=== PATIENT | male | born 1955 | race Caucasian/White ===

== ENCOUNTER 2020-05-03 20:21 | Inpatient (IN) | payer SELFPAY ==
[2020-05-03 20:23] VITALS: BP 186/114; PULSE 65; RESP 24; TEMP 36.6; O2SAT 96; BMI 22.2
--- NOTE | 2020-05-03 20:28 | ED_ITS ---
HPI - General Adult General: Chief complaint: Chest Pain Stated complaint: CP Time Seen by Provider: 05/03/20 20:23 Source: patient and EMS Mode of arrival: EMS Limitations: no limitations History of Present Illness: HPI narrative: Mr. Byrd is a 64-year-old male who is a direct admit from [facility]. Patient was diagnosed with a non- STEMI and was to be admitted directly. He comes to the ER to have COVID virus screening. Patient denies sore throat, cough, fever denies any or exposures or other risk factors for COVID virus. For his cardiac issues please see the chart that was sent by [facility]. Patient denies any chest pain currently. Associated symptoms: Reports chest pain; Deny dyspnea, headache(s), nausea, rash, palpitations, syncope or vomiting Review of Systems Const: Denies: fever(s) Eyes: Denies: change in vision ENMT: Denies: throat pain Card: Reports: chest pain; Denies: palpitations, syncope, pre-syncope or dyspnea on exertion Resp: Denies: dyspnea, productive cough or non-productive cough GI: Denies: abdominal pain, nausea, vomiting or diarrhea : Denies: flank pain, dysuria, urinary frequency or urinary urgency Musc: Denies: neck pain, back pain or extremity pain Skin/Breast: Denies: rash or pruritus Neuro: Denies: headache(s), numbness in extremities, weakness in extremities or dizziness Bernardo/Lymph: Denies: easy bruising or easy bleeding All/Imm: Denies: urticaria PFSH ED PFSH: Medical History Active intravenous drug use COPD (chronic obstructive pulmonary disease) HCV (hepatitis C virus) HLD (hyperlipidemia) HTN (hypertension) Methamphetamine addiction Peripheral arterial disease Smoking addiction Surgical History History of permanent cardiac pacemaker placement Hx of cataract surgery Pacemaker generator end of life With history of generator exchange Family History Other Heart disease Social History Smoking and tobacco status: current every day smoker cigarettes Number of cigarettes per day: 1-5 [ Other cigarette details: States has been cutting down ] Alcohol intake: former Former alcohol use details: Denies drinking alcohol currently Substance/Drug Use: current Substance/Drug use frequency: daily Substance/Drug use type: Methamphetamine Other substance/drug use details: Injection Desire information about substance/drug rehabilitation?: Yes Counseling given: Yes Lives independently: Yes Household members: none Marital status: Current occupational status: retired and disabled Physical Exam Const: COMMON NORMALS: no acute distress, patient oriented x3, no limitations, healthy appearing and well nourished GENERAL APPEARANCE: cooperative, well kempt and well developed HENMT: COMMON NORMALS: normocephalic, atraumatic, external ears normal, EAC's normal and Normal external nose present HEAD & SCALP: normal to inspection, normocephalic and atraumatic FACE & SINUS: normal facial exam and face symmetric NOSE: Normal external nose present and Normal nares present EXTERNAL EAR: Yes external ears normal EXTERNAL AUDITORY CANAL: EAC's normal MOUTH: Normal oral and palatal mucosa present, lip normal and tongue normal Eye: COMMON NORMALS: Equal, round and reactive pupils present and conjunctivae normal GENERAL EYE: appearance normal, both eyes and all related structures ALIGNMENT: Yes alignment normal PERIORBITAL: periorbital findings normal EYELID: eyelids normal CONJUNCTIVA: Yes conjunctivae normal SCLERA: sclerae normal PUPIL: Yes Equal, round and reactive pupils present Neck/C-Spine: COMMON NORMALS: full ROM, no lymphadenopathy, supple, no meningeal signs and no JVD GENERAL: Yes normal visual inspection and Yes trachea midline Chest: COMMONS NORMALS: normal inspection of the chest and normal palpation of entire chest wall Resp: COMMON NORMALS: normal respiratory effort, No retractions and No use of accessory muscles EFFORT & INSPECTION: Yes able to speak in complete sentences and Yes symmetric chest movement AUSCULTATION: no crackles, no rales, no rhonchi and no wheezes Cardio: COMMON NORMALS: no JVD, regular rate, regular rhythm, S1 normal heart sound present and S2 normal heart sound present RATE: regular rate RHYTHM: regular rhythm HEART SOUNDS: S1 normal heart sound present, S2 normal heart sound present, no click, no gallops, no murmurs, no rubs and abnormal split S2 GI: COMMON NORMALS: Soft to palpation and No hepatosplenomegaly present PALPATION: Yes Soft to palpation, No Tenderness to palpation present (GI), No Guarding due to palpation present (GI), No Rigid due to palpation, Yes No hepatosplenomegaly present, No Hernia present, No Palpable mass present and No Pulsatile mass present : COMMON NORMALS: Yes no CVA tenderness BLADDER/KIDNEY EXAM: Yes no CVA tenderness Back/Pelvis: COMMON NORMALS: no CVA tenderness, thoracic and lumbar spine normal to inspection, no thoracic nor lumbar tenderness and thoraco-lumbar ROM normal Extremity: COMMON NORMALS: normal to inspection, full ROM, capillary refill normal, no joint enlargement, no clubbing, cyanosis or edema and no calf tenderness Neuro: COMMON NORMALS: patient oriented x3, CN's II-XII intact bilaterally, moves all extremities, no focal motor deficits and no sensory deficits noted MENINGEAL SIGNS: Yes no meningeal signs SPEECH: speech normal Psych: COMMON NORMALS: mental status grossly normal, Normal thought process present, cooperative, normal affect, speech normal and activity/motor behavior normal APPEARANCE: Yes well kempt SPEECH: Yes normal speech THOUGHT PROCESS: Normal thought process present Skin: COMMON NORMALS: no rashes or lesions noted, turgor normal, no jaundice, no petechiae and no mottling GENERAL SKIN EXAM: no rashes or lesions noted and turgor normal Course Vital Signs: Vital signs: Vital Signs Temperature 98 F 05/04/20 00:00 Pulse Rate 60 05/04/20 00:00 Respiratory Rate 14 05/04/20 00:00 Blood Pressure 196/108 05/04/20 00:00 Pulse Oximetry 94 05/04/20 00:00 MDM - General Adult MDM Narrative: Medical decision making narrative: Patient has no sign of COVID virus and his EKG is stable with him not having any active chest pain. I reviewed the case with Dr. Bustos and he agrees to admit. EKG Data^: EKG 1: Attestation: I personally reviewed and interpreted this EKG as follows: EKG interpretation date: 05/03/20 EKG interpretation time: 20:35 Interpretation: Normal sinus rhythm at 64 beats a minute, T wave inversions in 3, aVF with occasional paced beats. Discharge Plan Discharge Patient Disposition: Admitted As Inpatient Admit Provider: Chidi Bustos Clinical Impression: Non-ST elevation PA (NSTEMI) Condition: Stable Discharge Date/Time: 05/03/20 22:15 Coding Level of Care Code ED Fish Processor for Chg Fwd Exam Comprehensive
--- NOTE | 2020-05-03 20:43 | ECG_ITS ---
[facility] Test Date: 2020-05-03 Pat Name: Elías Byrd Department: Room: 107 Gender: Male Manager Quality Systems: : 1955 Requested By: Estefani Diaz Order Number: [id number] Chacho MD: Uri Cortez M.D. Measurements Intervals [place] Rate: 64 P: 192 [place]: 217 QRS: 54 QRSD: 102 T: -57 QT: 444 QTc: 459 Interpretive Statements ELECTRONIC ATRIAL PACEMAKER ELECTRONIC VENTRICULAR PACEMAKER -- CONTOUR ANALYSIS BASED ON INTRINSIC RHYTHM POSSIBLE RIGHT VENTRICULAR CONDUCTION DELAY [RSR (QR) IN V1/V2] SEPTAL MYOCARDIAL INFARCTION , PROBABLY OLD [40+ ms Q WAVE IN V1/V2] MODERATE T-WAVE ABNORMALITY, CONSIDER INFERIOR ISCHEMIA [-0.1+ mV T WAVE IN II/aVF] No previous ECG available for comparison Electronically Signed On 05-05-2020 0:04:48 CDT by Uri Cortez M.D. [email or web address]
[2020-05-03 20:44] VITALS: BP 173/112; PULSE 64; RESP 18; O2SAT 97
--- NOTE | 2020-05-03 21:12 | PC.NURSE ---
attempted to call report and they could not take it at this time they will call back.
--- NOTE | 2020-05-03 21:18 | PM.HP ---
Providers/Chief Complaint Admitting Physician: Chidi Bustos Chief Complaint: CP History of Present Illness Elías Byrd is a 64 year old pleasant gentleman daily IV methamphetamine user with shared needles, HCV, cardiac problems including prior PPM implantation, COPD not on oxygen, with chronic cough, HTN, HLD, smoking addiction although says has almost quit, down to 2-3 cigarettes per day. He is hard of hearing, but is able to hear when spoken to closely in loud voice. Was transferred here from [facility] where he presented with episode of chest discomfort/chest pressure starting around 11 AM, and gradually resolving by the time he was at the outlying hospital. He reports it was across his chest, not radiating to his arm, without any definitive trigger. Not worse with movement or breathing. He does have chronic cough which he says he has had for years due to smoking and COPD. Denies any worsening or cough or worsening production of sputum. Denies any hemoptysis. He is currently chest pain-free. At [facility] he received aspirin, nitroglycerin, and a dose of Lovenox for non-STEMI after noted to have troponin elevation up to 208 initial, subsequently decreased down to 175. Chest x-ray there unremarkable. EKG without ST elevation, with some T wave inversions noted. He reports prior history of MN, previously with an angiogram, but denies ever having stents placed. Reports that during prior work-up he checked himself out of the hospital after he started feeling better. At home he denies having any fevers or chills, no headache, no symptoms of upper or lower respiratory infection beyond his chronic manifestations. He is noted with multiple scabbed lesions from injection sites on his arms. He states that he injects methamphetamine several times a day by reusing his own needles, and also sharing needles. He is interested in receiving information about resources to help him quit. He understands the risk of continued use, including cardiovascular risk with MN, as well as risks of bloodstream infection. Review of Systems Const: Denies: fever(s), chills, body aches or malaise Eyes: Denies: change in vision or eye redness ENMT: Denies: throat pain, oral sores or ear or mastoid pain Card: Reports: other (Chest discomfort/chest pressure); Denies: edema, pre-syncope, dyspnea on exertion or orthopnea (But says that he sleeps upright in a chair due to back problems) Resp: Reports: productive cough (Chronic); Denies: dyspnea, change in phlegm color or hemoptysis GI: Denies: abdominal pain, nausea, vomiting, diarrhea, constipation, hematochezia or melena : Denies: flank pain, difficulty urinating, urinary frequency or hematuria Musc: Reports: back pain (Chronic); Denies: joint swelling or joint redness Skin/Breast: Reports: sores (On bilateral upper extremities from multiple needle injections, as well as from picking on his skin); Denies: rash or new lesions Neuro: Denies: headache(s), numbness in extremities, weakness in extremities, dizziness, confusion or seizure-like activity Endo: Denies: polyuria or polydipsia Bernardo/Lymph: Denies: easy bleeding or purpura All/Imm: Denies: urticaria, throat swelling or tongue swelling Medications/Allergies Home Medications Medication Instructions Recorded Confirmed Last Taken Type No Known Home Medications 05/03/20 05/03/20 Unknown History Allergies Allergy/AdvReac Type Severity Reaction Status Date / Time No Known Allergies Allergy Verified 05/03/20 21:30 PFSH Acute PFSH: Medical History Active intravenous drug use COPD (chronic obstructive pulmonary disease) HCV (hepatitis C virus) HLD (hyperlipidemia) HTN (hypertension) Methamphetamine addiction Smoking addiction Surgical History History of permanent cardiac pacemaker placement Hx of cataract surgery Pacemaker generator end of life With history of generator exchange Family History Other Heart disease Social History Smoking and tobacco status: current every day smoker cigarettes Number of cigarettes per day: 1-5 [ Other cigarette details: States has been cutting down ] Alcohol intake: former Former alcohol use details: Denies drinking alcohol currently Substance/Drug Use: current Substance/Drug use frequency: daily Substance/Drug use type: Methamphetamine Other substance/drug use details: Injection Desire information about substance/drug rehabilitation?: Yes Counseling given: Yes Lives independently: Yes Household members: none Marital status: Current occupational status: retired and disabled Vitals/I&O/Wt Last Vital Signs Temp 97.8 F 05/03/20 20:23 Pulse 64 05/03/20 20:44 Resp 18 05/03/20 20:44 BP 173/112 05/03/20 20:44 Pulse Ox 97 05/03/20 20:44 Weight last 48 hrs Weight 70.307 kg Physical Exam Const: COMMON NORMALS: no acute distress and patient oriented x3 GENERAL APPEARANCE: cooperative and comfortable ORIENTATION/CONSCIOUSNESS: Yes awake OTHER: Hard of hearing HENMT: COMMON NORMALS: normocephalic and atraumatic Neck/C-Spine: COMMON NORMALS: no JVD Resp: COMMON NORMALS: normal respiratory effort and clear to auscultation bilaterally AUSCULTATION: clear to auscultation bilaterally Cardio: COMMON NORMALS: no JVD, regular rhythm, S1 normal heart sound present, S2 normal heart sound present and No murmurs present (Cardio) RHYTHM: regular rhythm HEART SOUNDS: S1 normal heart sound present and S2 normal heart sound present GI: COMMON NORMALS: Normal to inspection, nondistended, normoactive bowel sounds present, Soft to palpation and non-tender PALPATION: Yes Soft to palpation Extremity: COMMON NORMALS: no joint enlargement and no pedal edema Neuro: COMMON NORMALS: patient oriented x3 and moves all extremities Skin: COMMON NORMALS: no rashes or lesions noted LESIONS: lesion noted (Multiple prior injection sites on both arms, with few scabbed over lesions, excoriations.) A&P Assessment and plan (1) NSTEMI (non-ST elevated myocardial infarction): Triple on up to 208 initial at [facility], subsequently 175. Chest pain last from 11 AM up until [place] [facility] which is to be time late afternoon until around 1730. He is currently chest pain-free. With daily injection and off methamphetamine, current smoker although has been trying to cut down. Reports history of cardiac disease in the past, and says has had MN in the past and was evaluated several years ago, although at that time checked himself out of the hospital once he was feeling better. Extensively elevation is not clear, he thinks he may have had an angiogram done, although denies having any stents placed. T wave inversions noted on EKG. At this time will monitor his troponin EKG series. Continue aspirin 325 mg. Continue Lovenox. Check FLP, A1c. Given active drug abuse for now we will hold off on beta-rodolfo. Assess TTE. Dr. Cortez will see him in the morning. We will see if records can be requested from his prior evaluation. He needs to stop smoking as well needs to stop methamphetamine use. Discussed with him regarding risks of ongoing use, and he is aware, and states is interested in risk for more formation regarding resources available to help him quit. Will request assistance by case management. Status: Acute (2) Elevated d-dimer: Noted d-dimer elevation over at [facility]. Given his neck drug use likelihood is high this may be secondary to the intravenous injury, however, cannot rule out that his chest pain is not related to PE. His chronic cough, although says is not worse than usual and is due to his COPD. At this time he is on anticoagulation due to non-STEMI. Given he will require additional assessment for this, for now we will old off on additional assessment for possible PE until non-STEMI is evaluated and treated in case he needs either contrast load dye, or nuclear stress testing, for now will avoid CT angiography or V/Q. Either test may be considered depending on chosen cardiac risk stratification modality. Discussed with him regarding elevation of d-dimer and he understands and is agreeable for additional testing for possible VTE when this is safe. Status: Acute (3) Active intravenous drug use: Injecting methamphetamine several times a day. Reports history of untreated C. Chest x-ray over read [facility] without any signs of optic emboli. He is not having any shortness of breath. No cough not worse than well. Injection drug use in the setting of present pacemaker device. We will request blood cultures to be drawn. TTE will be assessed as above for NSTEMI, although at this time no suspicion of infective endocarditis. Please continue to recreational counselor on cessation, provide resources. Status: Acute (4) History of permanent cardiac pacemaker placement: With generator exchange Status: Acute (5) Smoking addiction: Discuss smoking cessation for 3-1/2 minutes. He is trying to quit, and is down to only about 3 cigarettes/day. Encouraged him to continue trying to quit. We will provide as needed nicotine replacement. Status: Acute (6) HLD (hyperlipidemia): Check lipid profile. Status: Acute (7) HTN (hypertension): Monitor blood pressure. So far has been rather elevated. Status: Acute (8) COPD (chronic obstructive pulmonary disease): Not in exacerbation. Neb treatments as needed. Reconcile home medications. Status: Acute (9) Methamphetamine addiction: Appreciate case management assistance with providing resources to help him quit. Status: Acute (10) HCV (hepatitis C virus): Will benefit from additional assessment and treatment on outpatient basis. Status: Acute (11) Hard of hearing: Would benefit from additional assessment by audiology on nonurgent basis. Status: Acute Attestations Medical Necessity Statement*: Admission of over 2 midnights is going to be needed for assessment of management of non-STEMI. Coding Level of Care Code Acute Awning Maker And Installer for g Fwd Exam Comprehensive Diagnoses NSTEMI (non-ST elevated myocardial infarction) I21.4 Elevated d-dimer R79.89 Active intravenous drug use F19.90 History of permanent cardiac pacemaker placement Z95.0 Smoking addiction F17.200 HLD (hyperlipidemia) E78.5 HTN (hypertension) I10 COPD (chronic obstructive pulmonary disease) J44.9 Methamphetamine addiction F15.20 HCV (hepatitis C virus) B19.20 Hard of hearing H91.90
[2020-05-03 21:50] VITALS: BP 160/118; PULSE 60; RESP 18; O2SAT 96
[2020-05-03 21:54] LABS: Troponin(5th) Baseline 195 ng/L (0-15)
[2020-05-03 22:00] VITALS: BP 185/107; PULSE 61; RESP 15; TEMP 36.8; O2SAT 97
[2020-05-03 22:13] VITALS: BP 151/110; PULSE 60; RESP 18; O2SAT 96
[2020-05-03 22:19] VITALS: BP 185/107; PULSE 61; RESP 14; TEMP 36.7; O2SAT 96
--- NOTE | 2020-05-03 22:43 | ECG_ITS ---
[facility] Test Date: 2020-05-03 Pat Name: Elías Byrd Department: Room: 107 Gender: Male Grocery Specialist: : 1955 Requested By: Estefani Diaz Order Number: [id number] Chacho MD: Uri Cortez M.D. Measurements Intervals [place] Rate: -1 P: [place]: -1 QRS: 0 QRSD: -1 T: 0 QT: -1 QTc: Interpretive Statements Demand AV paced rhythm. Diffuse ST-T changes. Poor our progression. WARNING: DATA QUALITY MAY AFFECT INTERPRETATION INTERPRETATION BASED ON A DEFAULT AGE OF 40 YEARS Compared to ECG 05/03/2020 20:35:26 Atrial-paced complex(es) or rhythm no longer present Ventricular-paced complex(es) or rhythm no longer present Myocardial infarct finding no longer present T-wave abnormality no longer present Possible ischemia no longer present Electronically Signed On 05-05-2020 1:33:05 CDT by Uri Cortez M.D. [id number]
--- NOTE | 2020-05-03 22:56 | PC.NURSE ---
Patient admitted to room 107. Patient is alert and oriented. Patient denies any chest pain at this time. Patient oriented to his room and call light within reach. Patient bed in low position, side rail up x2. vitals obtained and telemetry in place.
--- NOTE | 2020-05-03 23:08 | PC.NURSE ---
Patient does have scabbing to both arms. Not open or having any drainage. Doctor is aware.
--- NOTE | 2020-05-03 23:11 | P.CONIM_ITS ---
Providers/Reason For Consult Consulting Physican/Specialty*: Joshua Cortez MD/cardiology Reason for Consult*: Patient with chest pain and elevated troponin Attending Physician: Chidi Bustos History of Present Illness History of Present Illness Elías Byrd is a 64 year old male, with active drug abuse, presented to the [facility] in [place] today with complaints of chest pain. He was found to have elevated troponin T and the abnormal EKG. He was transferred to our hospital through the emergency room for further evaluation management. This patient is an extremely poor historian. He is an active IV drug abuser. He also is hard of hearing. According the patient, he has been having some episodes of chest tightnes s/heaviness for the last few days. This morning, he had a prolonged episode of chest tightness/heaviness of moderate intensity. The symptom might have lasted for an hour or so. The pain was radiating across the chest. He mainly had some shortness of breath. No other associated symptoms or radiation of pain. He was found to have elevated troponin T of around 170 at the outside hospital. It w ent up to 200 in our facility. Currently it seems to be coming down to 180. Patient denies any chest pain. He injects methamphetamine several times a day. He shares needles. He has a history of hepatitis C. HIV status is not known. He is known to have high blood pressure and? Dyslipidemia. He used to see a speech correction consultant in [place]. According to him, he has not been to the speech correction consultant for more than a year. He has a history of myocardial infarction in the past. He had an angiogram but did not have any PCI. Details are not available. His mother had coronary artery disease, myocardial infarction or congestive heart failure. She in her 80s. His brother had a CVA. No other relevant family history. He has been abusing methamphetamine for the last many years. He also smokes cigarettes half a pack a day or so. Denies any alcohol abuse. No other substance abuse. Review of Systems Narrative: CONSTITUTIONAL: No fever or chills. EYES: No blurring of vision or other visual disturbances lately. ENT: Hearing impairment bilaterally. CARDIOVASCULAR: As mentioned above. RESPIRATORY: History of chronic cough GASTROINTESTINAL: No hematemesis or melena. GENITOURINARY: No dysuria or hematuria. INTEGUMENTARY: No skin rashes or history of skin cancer. NEURO: No transient ischemic attacks or amaurosis. PSYCHIATRIC: No history of psychosis or major depression. HEMATOLOGIC: No bleeding disorders or significant anemia. ENDOCRINE: No history of polyuria or polydipsia. MUSCULOSKELETAL: He has been having swelling of both lower extremities. He also is complaining of leg pain bilaterally, with walking. ALLERGY/IMMUNOLOGY: As mentioned above. Meds/Allergies Home Medications and Allergies Home Medications Medication Instructions Recorded Confirmed Last Taken Type No Known Home Medications 05/03/20 05/03/20 Unknown History Allergies Allergy/AdvReac Type Severity Reaction Status Date / Time No Known Allergies Allergy Verified 05/03/20 21:30 PFSH Acute PFSH: Medical History Active intravenous drug use COPD (chronic obstructive pulmonary disease) HCV (hepatitis C virus) HLD (hyperlipidemia) HTN (hypertension) Methamphetamine addiction Peripheral arterial disease Smoking addiction Surgical History History of permanent cardiac pacemaker placement Hx of cataract surgery Pacemaker generator end of life With history of generator exchange Family History Other Heart disease Social History Smoking and tobacco status: current every day smoker cigarettes Number of cigarettes per day: 1-5 [ Other cigarette details: States has been cutting down ] Alcohol intake: former Former alcohol use details: Denies drinking alcohol currently Substance/Drug Use: current Substance/Drug use frequency: daily Substance/Drug use type: Methamphetamine Other substance/drug use details: Injection Desire information about substance/drug rehabilitation?: Yes Counseling given: Yes Lives independently: Yes Household members: none Marital status: Current occupational status: retired and disabled Vitals/I&O/Wt Last Vital Signs Temp 98.1 F 05/03/20 22:19 Pulse 61 05/03/20 22:19 Resp 14 05/03/20 22:19 BP 185/107 05/03/20 22:19 Pulse Ox 96 05/03/20 22:19 Weight last 48 hrs Weight 155 lb Physical Exam Narrative: EXAM NARRATIVE: GENERAL: The patient is alert and oriented times three. Not in any acute distress. Very hard of hearing. HEENT: No significant pallor, icterus or lymphadenopathy. The pupils are relatively small but reactant to light. Oral cavity: There are no mucous membrane lesions. Funduscopic examination: The fundus is not visualized NECK: Trachea appears to be central. No masses noted. No JVD or thyromegaly appreciated. No carotid bruit. RESPIRATORY: Chest is symmetrical. No intercostals muscle retraction or any accessory muscle activation. There is no chest wall tenderness. Breath sounds are heard bilaterally. No rales or rhonchi heard. No evidence of any consoli dation. BREASTS: Deferred. HEART: The PMI is in the 5th left intercostals space just inside the midclavicular line. No palpable precordial events. S1 and S2 are normal. No S3 or S4 heard. No pericardial rub or any click heard. Short systolic murmur in the left sternal border. ABDOMEN: No vessel pulsations or distention. No tenderness. No organomegaly appreciated. No abdominal bruit. Bowel sounds are normally heard. : Deferred. RECTAL: Deferred. LYMPHATIC: No lymphadenopathy noted in the neck or groin. EXTREMITIES: The lower extremities have a mottled appearance. The feet are relatively cold. The dorsalis pedis and posterior tibial pulse are extremely weak on the right side. They are palpable on the left side. MUSCULOSKELETAL: No acute joint deformities or swelling SKIN: There are no significant scars or skin rash noted. NEUROPSYCHIATRIC: The patient is alert and oriented x3. Appears to be somewhat withdrawn . Comprehension seems to be appropriate. Hard of hearing. No focal motor deficits. Data Labs: Other Labs: Laboratory Last Values Troponin T Baselin e 195 ng/L (0-15) H* 05/03/20 21:15 Laboratory Results - last 24 hr 05/03/20 21:15 Troponin T Baselin e 195 H* Micro: Micro: Microbiology 05/03/20 21:34 Blood Culture - Pr eliminary Blood SPECIMEN [facility] 05/03/20 21:15 Blood Culture - Pr eliminary Blood SPECIMEN [facility] Laboratory Last Values Troponin T Baselin e 195 ng/L (0-15) H* 05/03/20 21:15 Troponin T 120 Min jamul 176.7 ng/L (0-15) H 05/03/20 23:01 Delta Troponin T -18.3 ABS# (0-10) L 05/03/20 23:01 EKG^: EKG 1: My Interpretation: The EKG showed sinus rhythm with a demand AV pacing. T inversions in the inferior leads. Poor R wave progression. QT prolongation with a QTC of 470 A&P Assessment and plan (1) NSTEMI (non-ST elevated myocardial infarction): The patient's clinical presentation, abnormal EKG and elevated troponin T are suggestive of a non-ST elevation myocardial infarction. The methamphetamine abuse could be a contributing factor. Currently he is symptom-free and hemodynamically stable. May be kept on the Lovenox and aspirin. We will go ahead and do an echocardiogram in the morning. If he has significant wall motion abnormalities, we may start him on Plavix. Because of the history of methamphetamine abuse, we may hold off on any beta-rodolfo Status: Acute (2) Active intravenous drug use: Patient has a history of heavy methamphetamine abuse and sharing of needles. His HIV status is not known Status: Acute (3) Elevated d-dimer: This was found to be elevated in the outside hospital. Could be related to the IV drug abuse. May need to consider CTA, if the LV function is normal by echocardiogram Status: Acute (4) History of permanent cardiac pacemaker placement: Patient has not had any pacemaker interrogation recently. We will try to interrogate his pacemaker in the morning. Status: Acute (5) HTN (hypertension): Patient may be started on nitro paste 1 inch every 6 hours to anterior chest wall. Also may start him on amlodipine 5 mg p.o. daily. Status: Acute Qualifiers: Hypertension type: essential hypertension Qualified Code(s): I10 - Essential (primary) hypertension (6) Peripheral arterial disease: We will go ahead and do arterial Doppler examination JACOBY in the morning. Status: Acute Additional A&P Information Based on the patient clinical progress and the results of the above, further recommendations will be made. Thank you for the opportunity to eval this patient make these recommendations. Consult Attestations Medical Necessity Statement: Patient requires continued hospital stay for close monitoring and further management Coding Level of Care Code Acute Watch Crystal Grinder for [facility] Diagnoses NSTEMI (non-ST elevated myocardial infarction) I21.4 Active intravenous drug use F19.90 Elevated d-dimer R79.89 History of permanent cardiac pacemaker placement Z95.0 HTN (hypertension) I10 Hypertension type: essential hypertension Peripheral arterial disease I73.9
[2020-05-03 23:46] LABS: Troponin 5 2HR 176.7 ng/L (0-15); Troponin 5 2HR Delta -18.3 ABS# (0-10)
[2020-05-04] VITALS (7 sets, daily range): BP systolic 149–196; BP diastolic 81–108; PULSE 60–65; RESP 12–17; TEMP 36.6; O2SAT 91–94
--- NOTE | 2020-05-04 00:18 | PC.NURSE ---
contacted Dr. Phelps regreiniering patients elevated blood pressure and waiting response.
--- NOTE | 2020-05-04 00:49 | PC.NURSE ---
Dr. Bustos called and gave verbal order to give PO Norvasc 5mg x1 for hypertension. read back verbal order. Will continue to monitor.
--- NOTE | 2020-05-04 00:54 | USCV_ITS ---
Carson Elías Age: 64 Gender: M : 1955 Exam Date: 05/04/2020 06:03 Ordering Phys: Uri Cortez MD ([email or web address]) Technologist: Mark Anthony Nayak Exam Location: [facility] [place] Indication: PAD Risk Factors: Smoker Previous Vascular Surgery: RIGHT LEFT BP: 140.0 / 80.00 BP: 140.0/ 80.00 0 0 Waveform Velocity (cm/s) Velocity (cm/s) Waveform Biphasic 37.4 Iliac Prox 36.1 Biphasic Biphasic Iliac Mid Biphasic 38.5 38.1 Biphasic 31.7 Iliac Distal 30.6 Biphasic Biphasic 29.6 TIE TAMPER 31.1 Biphasic Biphasic 21.9 SFA Prox 37.6 Biphasic Biphasic 23.7 SFA Mid 38.1 Biphasic Biphasic 30.2 SFA Dist 34.1 Biphasic Monophasic 18.6 POP 49.6 Monophasic Biphasic 15.1 ASSISTANT CREDIT MANAGER 14.4 Monophasic Biphasic 16.0 DPA 14.2 Monophasic 0.6 JACOBY 0.6 FINDINGS Abnormal resting ABIs bilaterally Low velocity Doppler waveforms bilaterally Diminished JACOBY of 0.6 on both sides CONCLUSIONS Abnormal resting ABIs bilaterally, suggestive of moderately severe peripheral artery disease, possibly involving the aortoiliac segment. No similar previous studies are available for comparison Dr Uri Cortez MD [facility] (Electronically Signed) Final Date: 04 May 2020 18:26 S
[2020-05-04] MEDS: amlodipine 5 mg Tablet PO ×2 (00:57→12:09)
[2020-05-04] MEDS: nitroglycerin 1 gm/inch oint Pkt 2 INCH TOPICAL ×3 (01:11→12:09)
[2020-05-04 03:32] LABS: Basophils # 0.1 10^3/uL (0.0-0.1); Basophils % 1.6 %; Eosinophils # 0.4 10^3/uL (0.0-0.8); Eosinophils % 5.9 %; Hematocrit 36.6 % (42.0-52.0); Hemoglobin 12.3 g/dL (11.7-16.6); Lymphocytes # 1.7 10^3/uL (0.8-4.8); Lymphocytes % 24.9 %; Mean Corpuscular HGB Conc 33.6 g/dL (30.0-36.0); Mean Corpuscular Hemoglobin 31.5 pg (28.0-34.0); Mean Corpuscular Volume 93.8 fL (80-94); Mean Platelet Volume 10.4 fL (7.4-10.4); Monocytes # 0.5 10^3/uL (0.2-0.9); Neutrophils # 4.15 10^3/uL (1.8-7.7); Neutrophils % 59.3 %; Nucleated Red Blood Cells % 0 %; Platelet Count 194 10^3/cmm (130-400); Red Cell Distribution Width 14.5 % (12.1-15.1)
[2020-05-04 03:34] LABS: Anion Gap 15.6 (5-19); Blood Urea Nitrogen 25 mg/dL (8-23); Calcium 8.7 mg/dL (8.5-10.5); Carbon Dioxide 26 mmol/L (22-29); Chloride 97 mmol/L (98-107); Glomerular Filtration Rate 47.1 mL/min (90-130); Glucose 113 mg/dL (65-115); Osmolality Calculated 278 mOsm/kg (285-295); Potassium 3.6 mmol/L (3.5-5.1); Sodium 135 mmol/L (136-145)
[2020-05-04 03:37] LABS: Chol HDL Ratio 4.27 mg/dL (1.0-5.00); Cholesterol 273 mg/dL (0-200); HDL Cholesterol 64 mg/dL (60-100); LDL Cholesterol Calculated 173 mg/dL (50-129); Triglycerides 178 mg/dL (0-150); VLDL Cholestrol Calculation 36 mg/dL (0-30)
[2020-05-04 03:39] LABS: Troponin 5 6HR 183.3 ng/L (0-15); Troponin 5 6HR Delta -11.7 ng/L (0-12)
[2020-05-04 03:54] LABS: Estmated Average Glucose 105; Hemoglobin A1C 5.3 % (4.0-6.0)
[2020-05-04] MEDS: ipratropium-albuterol 3 mL Neb INHALATION ×2 (04:00→08:13)
[2020-05-04] MEDS: enoxaparin 80 mg/0.8 mL Syringe 70 MG SUBCUT (06:06)
--- NOTE | 2020-05-04 06:21 | PC.NURSE ---
End of shift: Patient has rested well this shift. Patient blood pressure is trending down. Patient is Nasal cannula. Patient has had no complaints of chest pain or discomfort. Will Continue to monitor.
--- NOTE | 2020-05-04 10:02 | P.PN_ITS ---
Subjective Subjective: Interval history: no acute complaints this morning, no further episodes of chest pain Medications: Reviewed: Yes Vitals/I&O/Wt Last Vital Signs Temp 98 F 05/04/20 04:00 Pulse 61 05/04/20 08:14 Resp 16 05/04/20 08:14 BP 149/81 05/04/20 04:00 Pulse Ox 94 05/04/20 08:14 05/03/20 05/04/20 05/04/20 22:59 06:59 14:59 Output Total 800 / 800 Balance -800 / -800 Weight last 48 hrs Weight 77.111 kg Weight 70.307 kg Physical Exam Narrative: EXAM NARRATIVE: GEN: Awake, alert and oriented, no acute distress CVS: S1S2 N RS: CTA B/L Abd: Soft, nt/nd , bs+ ACCOUNTING ADVISORY SERVICES MANAGER: no focal neuro deficits Data : 05/04/20 02:40 05/04/20 02:40 Micro: Microbiology 05/03/20 21:34 Blood Culture - Preliminary Blood SPECIMEN COLLECTED 05/03/20 21:15 Blood Culture - Preliminary Blood SPECIMEN COLLECTED A&P Assessment and plan (1) NSTEMI (non-ST elevated myocardial infarction): T wave inversions noted on EKG. Initial troponin >200 at OSH, here at 195 and then 176 Continue aspirin 325 mg. Continue full dose lovenox . Check LFTs given h/o Hepatitis c and start statins if within range Given active drug abuse for now we will hold off on beta-rodolfo Blood pressure ranging between 180-190 systolic, avoiding B blockers as above and JORGE given GODFREY, in case contarst needed for any procedures. Start amlodipine in the interim. If chest pain recurs, will start imdur, holding off for now as planned for possible perfusion scanning Assess TTE. Appreciate cardiology recommendations Blood cx to exclude subacute bacterial endocarditis He needs to stop smoking as well needs to stop methamphetamine use. Status: Acute (2) Elevated d-dimer: At this time he is on anticoagulation due to non-STEMI. Given he will require additional assessment for this, for now we will old off on additional assessment for possible PE until non-STEMI is evaluated and treated in case he needs either contrast load dye, or nuclear stress testing, for now will avoid CT angiography or V/Q. Either test may be considered depending on chosen cardiac risk stratification modality. Status: Acute (3) Active intravenous drug use: Injecting methamphetamine several times a day. Reports history of untreated C. Check HIV serology as if positive is a significant cardiovascular disease risk factor Check hepatitis serologies and liver function Chest x-ray over read MSF without any signs of septic emboli. He is not having any shortness of breath. No cough not worse than well. per report from transferring physician, his CXR showed some congestion and he received lasix for iv diuresis Injection drug use in the setting of present pacemaker device. Status: Acute (4) History of permanent cardiac pacemaker placement: With generator exchange Status: Acute (5) Smoking addiction: Discuss smoking cessation for 3-1/2 minutes. He is trying to quit, and is down to only about 3 cigarettes/day. Encouraged him to continue trying to quit. We will provide as needed nicotine replacement. Status: Acute (6) HLD (hyperlipidemia): Check lipid profile. Status: Acute (7) HTN (hypertension): Monitor blood pressure. So far has been rather elevated.Add amlodipine, further imdur depending on cardiology plans for further testing Status: Acute Qualifiers: Hypertension type: essential hypertension Qualified Code(s): I10 - Essential (primary) hypertension (8) COPD (chronic obstructive pulmonary disease): Not in exacerbation. Neb treatments as needed. Reconcile home medications. Status: Acute (9) Methamphetamine addiction: Appreciate case management assistance with providing resources to help him quit. Status: Acute (10) HCV (hepatitis C virus): Will benefit from additional assessment and treatment on outpatient basis. Status: Acute (11) Hard of hearing: Would benefit from additional assessment by audiology on nonurgent basis. Status: Acute Attestations Medical Necessity Statement*: NSTEMI undergoing further evaluation Coding Level of Care Code Acute Morphology Teacher for [facility] Fwd Diagnoses NSTEMI (non-ST elevated myocardial infarction) I21.4 Elevated d-dimer R79.89 Active intravenous drug use F19.90 History of permanent cardiac pacemaker placement Z95.0 Smoking addiction F17.200 HLD (hyperlipidemia) E78.5 HTN (hypertension) I10 Hypertension type: essential hypertension COPD (chronic obstructive pulmonary disease) J44.9 Methamphetamine addiction F15.20 HCV (hepatitis C virus) B19.20 Hard of hearing H91.90
--- NOTE | 2020-05-04 10:29 | PC.NURSE ---
DR MOHR CALLED AND STATED THAT PATIENT COULD HAVE SOMETHING LIGHT TO EAT BUT NO DIET ORDER DUE TO POSSIBLE ANGIO THIS EVENING
[2020-05-04 10:36] LABS: Alanine Aminotransferase 19 U/L (0-41); Aspartate Amino Transferase 44 U/L (0-40); Gamma Glutamyl Transferase 12 U/L (8-61); Lactate Dehydrogenase 429 U/L (135-225)
[2020-05-04 11:20] LABS: HIV 1 & 2 Antibody Non-Reactive (Non-Reactiv); HIV 1 & 2 Antigen Non-Reactive (Non-Reactiv)
[2020-05-04 11:44] LABS: Hepatitis A Antibody IgM Non-Reactive (Nonreactive); Hepatitis B Core AB, Total Non-Reactive (Nonreactive); Hepatitis B Surface AB 3.5 (0-8.5); Hepatitis B Surface Antigen Non-Reactive (Nonreactive); Hepatitis C Virus Antibody Reactive (Nonreactive)
[2020-05-04] MEDS: aspirin 325 mg Tablet PO (12:09)
--- NOTE | 2020-05-04 17:50 | PM.PN ---
Subjective Subjective: Interval history: The patient is feeling better. He seems to be somewhat agitated. He had echocardiogram today. He was found to have diffuse hypokinesia left ventricle with ejection fraction of around 36%. Denies any chest pain. No significant arrhythmias on the monitor. Apparently he is not wanting to stay in the hospital anymore. He is planning to leave. Has no fever or chills. No cough. Medications: Medication Review Details: Current Medications Acetaminophen (Tylenol) 650 mg PO Q6H PRN PRN Reason: Mild/Mod Pain Or Temp >/= 101 Albuterol/Ipratropium (Duoneb) 3 ml INHALATION Q6H PRN PRN Reason: SHORTNESS OF BREATH Last Admin: 05/04/20 08:13 Dose: 3 ml Documented by: Amlodipine Besylate (Norvasc) 5 mg PO DAILY [facility] Last Admin: 05/04/20 12:09 Dose: 5 mg Documented by: Aspirin (Aspirin) 325 mg PO DAILY [facility] Last Admin: 05/04/20 12:09 Dose: 325 mg Documented by: Enoxaparin Sodium (Lovenox) 70 mg SUBCUT Q12H [facility] Last Admin: 05/04/20 06:06 Dose: 70 mg Documented by: Nicotine (Nicoderm 7 Mg Patch) 1 patch TRANSDERMA DAILY PRN PRN Reason: WITHDRAWAL Nitroglycerin (Nitro-Bid) 2 inch TOPICAL Q6H [facility] Last Admin: 05/04/20 12:09 Dose: 2 inch Documented by: Ondansetron HCl (Zofran) 4 mg IVP Q6H PRN PRN Reason: NAUSEA AND VOMITING Vitals/I&O/Wt Last Vital Signs Temp 98 F 05/04/20 12:00 Pulse 65 05/04/20 12:00 Resp 12 05/04/20 12:00 BP 158/101 05/04/20 12:00 Pulse Ox 93 05/04/20 12:00 05/04/20 05/04/20 05/04/20 06:59 14:59 22:59 Intake Total 50 / 50 Output Total 800 / 800 200 / 200 Balance -800 / -800 -150 / -150 Weight last 48 hrs Weight 170 lb Weight 155 lb Physical Exam Narrative: EXAM NARRATIVE: GENERAL: The patient is alert and oriented times three. Not in any acute distress. Very hard of hearing. HEENT: No significant pallor, icterus or lymphadenopathy. The pupils are relatively small but reactant to light. Oral cavity: There are no mucous membrane lesions. NECK: Trachea appears to be central. No masses noted. No JVD or thyromegaly appreciated. No carotid bruit. RESPIRATORY: Chest is symmetrical. No intercostals muscle retraction or any accessory muscle activation. There is no chest wall tenderness. Breath sounds are heard bilaterally. No rales or rhonchi heard. No evidence of any consolidation. BREASTS: Deferred. HEART: The heart sounds are normal. No S3 or S4. No significant murmurs. No pericardial rub. ABDOMEN: No vessel pulsations or distention. No tenderness. No organomegaly appreciated. No abdominal bruit. Bowel sounds are normally heard. : Deferred. RECTAL: Deferred. LYMPHATIC: No lymphadenopathy noted in the neck or groin. EXTREMITIES: The lower extremities have a mottled appearance. The feet are relatively cold. The dorsalis pedis and posterior tibial pulse are extremely weak on the right side. They are palpable on the left side. MUSCULOSKELETAL: No acute joint deformities or swelling SKIN: There are no significant scars or skin rash noted. NEUROPSYCHIATRIC: The patient is alert and oriented x3. Appears to be somewhat withdrawn . Comprehension seems to be appropriate. Hard of hearing. No focal motor deficits. Data : 05/04/20 02:40 05/04/20 02:40 Micro: Laboratory Last Values WBC 7.0 10^3/uL (4.0-10.0) 05/04/20 02:40 RBC 3.90 10^6/uL (4.1-5.3) L 05/04/20 02:40 Hgb 12.3 g/dL (11.7-16.6) 05/04/20 02:40 Hct 36.6 % (42.0-52.0) L 05/04/20 02:40 MCV 93.8 fL (80-94) 05/04/20 02:40 MCH 31.5 pg (28.0-34.0) 05/04/20 02:40 MCHC 33.6 g/dL (30.0-36.0) 05/04/20 02:40 RDW 14.5 % (12.1-15.1) 05/04/20 02:40 Plt Count 194 10^3/cmm (130-400) 05/04/20 02:40 MPV 10.4 fL (7.4-10.4) 05/04/20 02:40 Neut % (Auto) 59.3 % 05/04/20 02:40 Lymph % (Auto) 24.9 % 05/04/20 02:40 [place] % (Auto) 7.0 % 05/04/20 02:40 Eos % (Auto) 5.9 % 05/04/20 02:40 Baso % (Auto) 1.6 % 05/04/20 02:40 Neut # (Auto) 4.15 10^3/uL (1.8-7.7) 05/04/20 02:40 Lymph # (Auto) 1.7 10^3/uL (0.8-4.8) 05/04/20 02:40 [place] # (Auto) 0.5 10^3/uL (0.2-0.9) 05/04/20 02:40 Eos # (Auto) 0.4 10^3/uL (0.0-0.8) 05/04/20 02:40 Baso # (Auto) 0.1 10^3/uL (0.0-0.1) 05/04/20 02:40 Nucleated RBC % (auto) 0 % 05/04/20 02:40 Nucleated RBCs # 0.0 /100WBC 05/04/20 02:40 Sodium 135 mmol/L (136-145) L 05/04/20 02:40 Potassium 3.6 mmol/L (3.5-5.1) 05/04/20 02:40 Chloride 97 mmol/L (98-107) L 05/04/20 02:40 Carbon Dioxide 26 mmol/L (22-29) 05/04/20 02:40 Anion Gap 15.6 (5-19) 05/04/20 02:40 BUN 25 mg/dL (8-23) H 05/04/20 02:40 Creatinine 1.5 mg/dL (0.7-1.2) H 05/04/20 02:40 GFR Calculation 47.1 mL/min (90-130) L 05/04/20 02:40 Glucose 113 mg/dL (65-115) 05/04/20 02:40 Estimat Average Glucose 105 05/04/20 02:40 Hemoglobin A1c 5.3 % (4.0-6.0) 05/04/20 02:40 Calculated Osmolality 278 mOsm/kg (285-295) L 05/04/20 02:40 Calcium 8.7 mg/dL (8.5-10.5) 05/04/20 02:40 GGT 12 U/L (8-61) 05/04/20 02:40 AST 44 U/L (0-40) H 05/04/20 02:40 ALT 19 U/L (0-41) 05/04/20 02:40 Lactate Dehydrogenase 429 U/L (135-225) H 05/04/20 02:40 Troponin T Baseline 195 ng/L (0-15) H* 05/03/20 21:15 Troponin T 120 Minute 176.7 ng/L (0-15) H 05/03/20 23:01 Delta Troponin T -18.3 ABS# (0-10) L 05/03/20 23:01 Troponin T Hi Sens 6Hr 183.3 ng/L (0-15) H 05/04/20 02:40 Troponin T Hi Sens 6Hr Delta -11.7 ng/L (0-12) L 05/04/20 02:40 Triglycerides 178 mg/dL (0-150) H 05/04/20 02:40 Cholesterol 273 mg/dL (0-200) H 05/04/20 02:40 LDL Cholesterol, Calc 173 mg/dL (50-129) H 05/04/20 02:40 Total VLDL Cholesterol 36 mg/dL (0-30) H 05/04/20 02:40 HDL Cholesterol 64 mg/dL (60-100) 05/04/20 02:40 Cholesterol/HDL Ratio 4.27 mg/dL (1.0-5.00) 05/04/20 02:40 Hepatitis A IgM Ab Non-reactive (Nonreactive) 05/04/20 02:40 Hep Bs Antigen Non-reactive (Nonreactive) 05/04/20 02:40 Hep Bs Antibody 3.5 (0-8.5) 05/04/20 02:40 Hep B Core Total Ab Non-reactive (Nonreactive) 05/04/20 02:40 Hepatitis C Antibody Reactive (Nonreactive) H 05/04/20 02:40 HIV 1&2 Ab & HIV 1 Ag Non-reactive (Non-Reactiv) 05/04/20 02:40 HIV 1&2 Antibody Non-reactive (Non-Reactiv) 05/04/20 02:40 Microbiology 05/03/20 21:34 Blood Culture - Preliminary Blood SPECIMEN COLLECTED 05/03/20 21:15 Blood Culture - Preliminary Blood SPECIMEN COLLECTED A&P Assessment and plan (1) NSTEMI (non-ST elevated myocardial infarction): In view of his multiple risk factors, presenting symptoms and abnormal echocardiogram findings, it is very possible that the patient may have underlying coronary artery disease. For further evaluation of his coronary status, he requires a cardiac authorization. This was discussed with patient. He seems to be not interested in the procedure. He is planning to leave the hospital. Status: Acute (2) Active intravenous drug use: Patient has a history of heavy methamphetamine abuse and sharing of needles. His HIV status is not known Status: Acute (3) Elevated d-dimer: This was found to be elevated in the outside hospital. Most likely related to his IV drug abuse. Status: Acute (4) History of permanent cardiac pacemaker placement: Patient has not had any pacemaker interrogation recently. The pacing function appears to be appropriate. The pacemaker has not been interrogated Status: Acute (5) HTN (hypertension): The blood pressure seems to be getting under control. Status: Acute Qualifiers: Hypertension type: essential hypertension Qualified Code(s): I10 - Essential (primary) hypertension (6) Peripheral arterial disease: Patient had the arterial Doppler examination today which revealed abnormal resting ABIs bilaterally, suggestive of moderately severe peripheral artery disease, possibly involving the aortoiliac level. Patient may benefit from a peripheral angiogram, to further evaluate the peripheral artery disease and decide on management. Status: Acute Additional A&P Information Other problems are IV drug abuse ? Chronic kidney disease COPD Hepatitis Ongoing smoking abuse Discussed with the patient, the importance of staying in the hospital to have further evaluation of his cardiovascular status. He seems to understand this. However it seems to me that he is determined to leave. He seems to understand implications Attestations Medical Necessity Statement*: Patient requires continued hospital stay for close monitoring and further management Coding Level of Care Code Acute [facility] Driver for [facility] Diagnoses NSTEMI (non-ST elevated myocardial infarction) I21.4 Active intravenous drug use F19.90 Elevated d-dimer R79.89 History of permanent cardiac pacemaker placement Z95.0 HTN (hypertension) I10 Hypertension type: essential hypertension Peripheral arterial disease I73.9
--- NOTE | 2020-05-04 17:56 | PC.NURSE ---
PATIENT EXITED THE HOSPITAL AMA ; PATIENT WAS MADE AWARE OF HIS MEDICAL SITUATIONS WELL THE POSSIBLE CONSEQUENCES OF LEAVING BEFORE AND WITHOUT TREATMENT ; PATIENT VERBALIZED UNDERSTANDING AND SIGNED THE AMA FORM ; PATIENT WAS SHOWN TO THE ER EXIT BY THIS NURSE ; PATIENT WAS UNABLE TO WALK ALL THE WAY TO THE EXIT DOORS AND REQUIRED A WHEELCHAIR ; THIS NURSE AGAIN EDUCATED PATIENT OF MEDICAL CONDITION AND CONSEQUENCES OF LEAVING WITHOUT TREATMENT AND AGAIN PATIENT REFUSED AND REQUESTED TO CONTINUE TO EXIT ; PATIENT EXITED THE HOSPITAL UNDER HIS OWN POWER ; DR MORALES WAS NOTIFIED ; IV WAS REMOVED AND PRESSURE DRESSING APPLIED WITH NO BLEEDING NOTED
--- NOTE | 2020-05-04 22:19 | USCV_ITS ---
Carson Elías Age: 64 Gender: M : 1955 Exam Date: 05/04/2020 05:44 Ordering Phys: Chidi Bustos MD Technologist: Mark Anthony Nayak Exam Location: [facility] – [place] Indication: NSTEMI BP: 149 / 81 HR: 70 Rhythm: Sinus Technical Quality: MEASUREMENTS (Male / Female) Normal Values 2D ECHO LV Diastolic Diameter PLAX 4.4 cm 4.2 - 5.9 / 3.9 - 5.3 cm LV Systolic Diameter PLAX 3.3 cm IVS Diastolic Thickness 1.1 cm 0.6 - 1.0 / 0.6 - 0.9 cm IVS Systolic Thickness 1.7 cm LVPW Diastolic Thickness 1.1 cm 0.6 - 1.0 / 0.6 - 0.9 cm LVPW Systolic Thickness 1.8 cm LVOT Diameter 2.1 cm LV Ejection Fraction 2D Teich 48.5 % LV Ejection Fraction MOD 2C 35.6 % LV Ejection Fraction 2C AL 36.8 % LA Diameter 3.6 cm LA Width 3.8 cm LA Height 4.5 cm RA Width 3.7 cm RA Height 3.8 cm Aorta at Sinotubular Diameter 3.7 cm M-MODE LV Diastolic Diameter MM 5.0 cm 4.2 - 5.9 / 3.9 - 5.3 cm LV Systolic Diameter MM 3.8 cm LV Ejection Fraction MM Teich 48.6 % IVS Diastolic Thickness MM 0.9 cm 0.6 - 1.0 / 0.6 - 0.9 cm IVS Systolic Thickness MM 1.3 cm LVPW Diastolic Thickness MM 1.3 cm 0.6 - 1.0 / 0.6 - 0.9 cm LVPW Systolic Thickness MM 2.2 cm RV Diastolic Diameter MM 1.9 cm Aortic Annulus Diameter 4.0 cm LA Ao Ratio MM 0.9 MV E Point Septal Separation 1.6 cm DOPPLER AV Peak Velocity 109.0 cm/s LVOT Peak Velocity 101.0 cm/s AV Area Cont Eq vti 2.7 cm squared AV Area Cont Eq pk 3.2 cm squared MV Area PHT 3.5 cm squared Mitral E to A Ratio 0.6 MV E' Velocity 5.0 cm/s Mitral E to MV E' Ratio 10.4 Mitral E to LV E' Lateral Ratio 9.1 Mitral E to LV E' Septal Ratio 12.7 TR Peak Velocity 182.0 cm/s TR Peak Gradient 13.2 mmHg TV Peak E Velocity 82.0 cm/s Right Atrial Pressure 5.0 mmHg Pulmonary Artery Systolic Pressu 18.2 mmHg PV Peak Velocity 85.0 cm/s FINDINGS Left Ventricle Diffuse hypokinesia of the left ventricle with ejection fraction of 36%.mild left ventricular hypertrophy.Grade I/IV diastolic dysfunction (abnormal relaxation filling pattern), normal to mildly elevated filling pressures. Right Ventricle Pacemaker wire on the ventricle Right Atrium Pacemaker wire in the right atrium Left Atrium The left atrium is normal in size. Mitral Valve Thickened mitral valve. Aortic Valve Thickened aortic valve. Trace aortic valve regurgitation. Tricuspid Valve No gross abnormalities noted Pulmonic Valve Not visualized well Pericardium Normal pericardium without effusion. Aorta Normal ascending aorta dimension. CONCLUSIONS Diffuse hypokinesia of the left ventricle with ejection fraction of 36%. mild left ventricular hypertrophy.Grade I/IV diastolic dysfunction (abnormal relaxation filling pattern), normal to mildly elevated filling pressures. Thickened aortic valve. Thickened mitral valve. Trace aortic valve regurgitation. There is no pericardial effusion. There are no intracardiac masses. There are no prior echocardiogram studies to compare. Dr Uri Cortez MD FAC (Electronically Signed) Final Date: 04 May 2020 10:27 S
--- NOTE | 2020-05-05 13:03 | PC.RESP ---
Smoking Cessation information sent to patient.
== END 2020-05-04 17:56 | disposition home or self-care (01) | DRG 281 ==
LOC: ER 21:06 → CSU 21:34
PROVIDERS: Admitting Provider Internal Medicine; Emergency Provider Emergency Medicine; Visit Provider Student in an Organized Health Care Education/Training Program
DX: I21.4 Non-ST elevation (NSTEMI) myocardial infarction (principal); F15.20 Other stimulant dependence, uncomplicated; E78.5 Hyperlipidemia, unspecified; J44.9 Chronic obstructive pulmonary disease, unspecified; I10 Essential (primary) hypertension; H91.90 Unspecified hearing loss, unspecified ear; B19.20 Unspecified viral hepatitis C without hepatic coma; F17.210 Nicotine dependence, cigarettes, uncomplicated; Z95.0 Presence of cardiac pacemaker
CPT/HCPCS: 12345; 36415; 80048; 80061; 82977; 83036; 83615; 84450; 84460; 84484; 85025; 86705; 86706; 86709; 86803; 87040; 87340; 87806; 93005; 93306; 93925; 94640; 94664; 96372; 99283; J1650